=== PATIENT | female | born 1990 | race Caucasian/White ===

== ENCOUNTER 2024-04-26 20:07 | Inpatient (IN) ==
[2024-04-26 20:47] LABS: Basophils # (auto) 0.09 K/uL (0.00-0.20); Basophils % (auto) 0.6 %; Eosinophils # (auto) 0.14 K/uL (0.00-0.50); Eosinophils % (auto) 0.9 %; Hematocrit (blood only) 43.5 % (37.0-47.0); Hemoglobin 15.2 g/dl (12.0-16.0); Immature Granulocytes # (auto) 0.06 K/uL (0.01-0.20); Immature Granulocytes % (auto) 0.4 %; Lymphocytes # (auto) 3.34 K/uL (1.20-3.40); Lymphocytes % (auto) 22.1 %; Mean Corpuscular Hemoglobin 32.5 pg (25.0-34.0); Mean Corpuscular Hgb Conc 34.9 g/dL (32.0-36.0); Mean Corpuscular Volume 93.1 fL (80.0-100.0); Mean Platelet Volume 8.7 fL (9.4-12.4); Monocytes # (auto) 1.06 K/uL (0.11-0.59); Platelet Count 289 K/uL (130-400); RDW Coefficient of Variation 14.3 % (11.5-14.5); RDW Standard Deviation 48.9 fL (36.4-46.3); Red Blood Count 4.67 M/uL (4.20-5.40); White Blood Count 15.09 K/ul (4.8-10.8)
[2024-04-26 21:02] LABS: Appearance Urine Cloudy (Clear); Bacteria Urine Automated 1+ (None Seen); Bilirubin Urine Negative (Negative); Blood Urine 2+ (Negative); Color Urine Yellow; Glucose Urine UA Negative (Negative); Ketones Urine Trace (Negative); Leukocyte Esterase Urine Negative (Negative); Nitrite Urine Negative (Negative); Protein Urine 1+ (Negative); Specific Gravity Urine 1.021 (1.000-1.030); Urobilinogen Urine Negative (Negative); WBC Urine Automated 0-5 /hpf (0-5); pH Urine 5.5 (4.5-7.5)
[2024-04-26 21:12] LABS: Acetaminophen < 3 ug/ml (10-30); Amphetamines+Metham, Urine Neg (Neg); Barbiturates, Urine Neg (Neg); Benzodiazepine, Urine Neg (Neg); Cocaine, Urine Neg (Neg); Fentanyl, Urine Neg (Neg); MDMA (Ecstacy), Urine Neg (Neg); Marijuana, Urine Neg (Neg); Methadone, Urine Neg (Neg); Opiate, Urine Neg (Neg); Phencyclidine, Urine Neg (Neg); Salicylate < 3.0 mg/dl (3.0-30)
[2024-04-26 21:13] LABS: Alanine Aminotransferase 21 U/L (7-52); Albumin Globulin Ratio 1.3 (0.9-2); Albumin Level 4.4 gm/dl (3.4-5.0); Alkaline Phosphatase 85 U/L (34-104); Anion Gap 12 (3-11); BUN Creatinine Ratio 12.3 (10-20); Bilirubin,Total 0.2 mg/dl (0.2-1.0); Blood Urea Nitrogen 7 mg/dl (6-23); Calcium 9.9 mg/dl (8.6-10.3); Carbon Dioxide 20 mmol/L (21-32); Chloride 103 mmol/L (98-107); Creatinine Clr Calc Pharmacy 132.7 ml/min; Est GFR (African American) 138.2 ml/min; Est GFR (Non-African American) 119.3 ml/min; Globulin 3.3 gm/dl (2.5-4.0); Glucose 147 mg/dl (70-99(Fasting)); Sodium 135 mmol/L (136-145); Total Protein 7.7 gm/dl (6.0-8.3)
[2024-04-26 21:21] LABS: Potassium 4.1 mmol/L (3.5-5.1)
[2024-04-26 21:22] LABS: Thyroid Stimulating Hormone 1.069 uIu/ml (0.300-4.500)
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
[2024-04-26] MEDS: NICOTINE 21 MG/24 HR TDSY TD STA (21:56)
[2024-04-26] MEDS: LORazepam 1 MG TAB SL STA (21:57)
[2024-04-26] MEDS: chlordiazePOXIDE HCl 25 MG CAP PO ONE (21:57)
[2024-04-26] MEDS: dexAMETHasone**PF** 10 MG/ML VIAL PO ONE (23:41)
[2024-04-26] MEDS: AMOXICILLIN/CLAVULANATE 875 MG TAB PO ONE (23:41)
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
--- NOTE | 2024-04-27 00:05 | CT Scan Report ---
Exam(s): CT FACIAL Without Contrast EXAM: CT Head and Maxillofacial Without Intravenous Contrast CLINICAL HISTORY: Reason for exam: right jaw pain, dental infection. TECHNIQUE: Axial computed tomography images of the head/brain and face without intravenous contrast. Automated exposure control was utilized for the study. A dose lowering technique was utilized adhering to the principles of ALARA. COMPARISON: No relevant prior studies available. FINDINGS: Brain: Unremarkable. No hemorrhage. No significant white matter disease. No edema. Ventricles: Unremarkable. No ventriculomegaly. Bones/joints: No acute fracture. Excessive dental caries with periapical lucencies about tooth #7, 12,, 18 and 31 concerning for periapical abscesses. Soft tissues: There is inflammatory phlegmon about the right lateral mandible with mild inflammation of the surrounding soft tissues. Sinuses: Unremarkable as visualized. No acute sinusitis. Mastoid air cells: Unremarkable as visualized. No mastoid effusion. Orbits: Unremarkable as visualized. IMPRESSION: Extensive dental caries with periapical about tooth #7, 12, 18 and 31 concerning for periapical abscesses with inflammatory phlegmon about the right lateral mandible without definite evidence of abscess formation in this noncontrast study. Recommend dental consult for further evaluation. Electronically signed by: Rashida Hare MD 04/27/24 00:05 AM
[2024-04-27 00:31] LABS: Magnesium 1.8 mg/dl (1.7-2.4)
[2024-04-27] MEDS: AMPICILLIN/SULBACTAM SOD 3,000 MG in SODIUM CHLOR 0.9% MINI-B 100 ML IV STA (00:40)
[2024-04-27] MEDS: MULTI-VITAMIN INFUSION 10 ML, THIAMINE HCL 100 MG, FOLIC ACID 1 MG in SODIUM CHLORIDE 0... IV ONE (01:12)
[2024-04-27] MEDS: KETOROLAC TROMETHAMINE 15 MG/ML VIAL IV PRN (02:20)
[2024-04-27] MEDS: LORazepam 1 MG in SYRINGE 0.5 ML IV PRN (02:23)
[2024-04-27] MEDS: ACETAMINOPHEN 325 MG TAB PO PRN (05:13)
[2024-04-27] MEDS: PROMETHAZINE HCL 6.25 MG in SODIUM CHLORIDE 0.9% 50 ML IV PRN (05:14)
[2024-04-27] MEDS: AMPICILLIN/SULBACTAM SOD 3,000 MG in SODIUM CHLOR 0.9% MINI-B 100 ML IV SCH (06:14)
[2024-04-27 06:57] LABS: Estimated Average Glucose 103 mg/dl; Hemoglobin A1C 5.2 % (4.5-5.6)
[2024-04-27 07:23] LABS: Basophils # (auto) 0.04 K/uL (0.00-0.20); Basophils % (auto) 0.4 %; Eosinophils # (auto) 0.02 K/uL (0.00-0.50); Eosinophils % (auto) 0.2 %; Hematocrit (blood only) 42.4 % (37.0-47.0); Hemoglobin 14.4 g/dl (12.0-16.0); Immature Granulocytes # (auto) 0.04 K/uL (0.01-0.20); Immature Granulocytes % (auto) 0.4 %; Lymphocytes # (auto) 0.93 K/uL (1.20-3.40); Lymphocytes % (auto) 8.4 %; Mean Corpuscular Hemoglobin 31.7 pg (25.0-34.0); Mean Corpuscular Volume 93.4 fL (80.0-100.0); Mean Platelet Volume 9.2 fL (9.4-12.4); Monocytes # (auto) 0.08 K/uL (0.11-0.59); Monocytes % (auto) 0.7 %; Neutrophils # (auto) 9.99 K/uL (1.40-6.50); Neutrophils % (auto) 89.9 %; Platelet Count 276 K/uL (130-400); RDW Coefficient of Variation 14.1 % (11.5-14.5); RDW Standard Deviation 47.8 fL (36.4-46.3); Red Blood Count 4.54 M/uL (4.20-5.40)
[2024-04-27 07:37] LABS: Calcium 8.8 mg/dl (8.6-10.3); Creatinine Clr Calc Pharmacy 140.1 ml/min; Est GFR (African American) 140.7 ml/min; Est GFR (Non-African American) 121.4 ml/min; Potassium 4.2 mmol/L (3.5-5.1)
[2024-04-27] MEDS: LORazepam 0.5 MG TAB PO PRN (08:27)
[2024-04-27] MEDS ORDERED: Nursing to Pharmacy Communication SCH (09:30)
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
--- NOTE | 2024-04-27 16:31 | Hospitalist Progress Note ---
Date of Service April 27, 2024 Assessment & Plan (1) Sepsis: Plan: Secondary to odontogenic infection Suicidality, history mood disorder Possible alcohol abuse Hyperglycemia low DM ongoing tobacco abuse Admit to medical telemetry [facility] OMFS consult Re: Odontogenic infection Suicide precautions, Psych consult re: suicidality KIM S at risk protocol, DT precautions Check hemoglobin A1c Nicotine patch DVT prophylaxis. SCDs for now possible procedure Recommend Lovenox 40 mg subcutaneous daily if no OMFS procedure Full code Text document was generated using [employer] voice recognition software. It may contain grammatical or spelling errors. Kindly contact undersigned for clarification of any documentation item in question. Admission and Anticipated Discharge Date Admission Date: April 26, 2024 Subjective 04/27/2024 The patient was seen and examined in medical telemetry unit She has been feeling little better Tremors are improved Right facial pain and dental pain is persisting No fever and or chills Review of Systems Review of Systems: All systems reviewed and are unremarkable except as noted below Physical Exam Physical Exam: Sitting on the bed without any acute distress Constitutional: well developed, well nourished, + ill appearing and average body habitus Eyes: PERRL, conjunctivae normal, anicteric sclerae ENMT: external ear and nose normal, oropharynx normal Neck: trachea midline, no thyromegaly Respiratory: no respiratory distress Auscultation: lungs clear to auscultation bilaterally Cardiovascular: Rate/Rhythm: regular rate, regular rhythm and + tachycardic Heart Sounds: normal S1 and normal S2; no murmur Extremities: no edema Gastrointestinal (Abdomen): Inspection/Auscultation: normal bowel sounds; abdomen not distended Percussion/Palpation: abdomen soft; abdomen nontender Musculoskeletal: No acute arthritis involving any of the joint Neurologic: normal touch/pain/proprioception and moves all extremities; no focal motor deficits Lymphatic: no cervical or axillary lymphadenopathy Results & Data Results & Data Vital Signs (Past 12 Hours) Vital Signs Temp Pulse Pulse Resp BP BP Pulse Ox 04/27/24 15:07 36.8 C 102 H 20 151/95 H 96 04/27/24 14:07 103 H 04/27/24 11:34 36.6 C 118 H 20 98 04/27/24 08:45 04/27/24 08:08 36.7 C 90 18 114/75 97 04/27/24 07:00 95 H 04/27/24 06:19 36.3 C L 94 H 22 118/75 97 04/27/24 05:53 36.8 C 105 H 22 130/90 97 O2 Del Method 04/27/24 15:07 Room Air 04/27/24 14:07 04/27/24 11:34 Room Air 04/27/24 08:45 Room Air 04/27/24 08:08 Room Air 04/27/24 07:00 04/27/24 06:19 Room Air 04/27/24 05:53 Room Air Laboratory Results Short CBC 04/26/24 04/27/24 Range/Units 20:24 06:32 WBC 15.09 H 11.10 H (4.8-10.8) K/ul Hgb 15.2 14.4 (12.0-16.0) g/dl Hct 43.5 42.4 (37.0-47.0) % Plt Count 289 276 (130-400) K/uL BMP 04/26/24 04/26/24 04/27/24 20:24 20:24 06:32 Sodium 135 L 136 Potassium TNP 4.1 4.2 Chloride 103 107 Carbon Dioxide 20 L 22 BUN 7 7 Creatinine 0.57 L 0.54 L Glucose 147 H 144 H Calcium 9.9 8.8 Liver Function 04/26/24 04/26/24 Range/Units 20:24 20:24 Total Bilirubin 0.2 (0.2-1.0) mg/dl AST TNP 25 ALT 21 (7-52) U/L Alkaline Phosphatase 85 (34-104) U/L Albumin 4.4 (3.4-5.0) gm/dl Urine 04/26/24 Range/Units 20:24 Urine Color Yellow Urine Appearance Cloudy A (Clear) Urine pH 5.5 (4.5-7.5) Ur Specific [place] 1.021 (1.000-1.030) Urine Protein 1+ H (Negative) Urine Glucose (UA) Negative (Negative) Medications Administered Current Inpatient Medications Acetaminophen (Acetaminophen 325 Mg Tab) 650 mg PO QID PRN PRN Reason: pain/fever Stop: 05/27/24 00:11 Last Admin: 04/27/24 05:13 Dose: 650 mg Folic Acid (Folic Acid 1 Mg Tab) 1 mg PO QAM [facility] Stop: 05/28/24 08:59 Ampicillin Sodium/Sulbactam Sodium 3,000 mg/ Sodium Chloride 100 mls @ 100 mls/hr IV Q6H [facility] Stop: 05/07/24 05:59 Last Infusion: 04/27/24 13:11 Dose: Infused Promethazine HCl 6.25 mg/ (Sodium Chloride) 50.25 mls @ 201 mls/hr IV Q6H PRN PRN Reason: Nausea And Vomiting Stop: 05/27/24 00:11 Last Infusion: 04/27/24 05:41 Dose: Infused Ibuprofen (Ibuprofen 200 Mg Tab) 200 mg PO Q6H PRN PRN Reason: pain not relieved by tylenol Stop: 05/27/24 00:11 Ketorolac Tromethamine (Ketorolac Tromethamine 15 Mg/Ml Vial) 15 mg IV Q6H PRN PRN Reason: Pain Stop: 05/02/24 00:11 Last Admin: 04/27/24 16:27 Dose: 15 mg Lorazepam (Lorazepam 0.5 Mg Tab) 0.5 mg PO TID PRN PRN Reason: Anxiety Stop: 05/27/24 06:20 Last Admin: 04/27/24 08:27 Dose: 0.5 mg Miscellaneous (Remove Nicoderm Patch) 1 each N/A 2100 [facility] Stop: 04/27/24 21:01 Multivitamins ([facility]ivitamin Tab) [facility] Stop: 05/28/24 08:59 Thiamine HCl (Thiamine Hcl 100 Mg Tab) [facility] Stop: 05/28/24 08:59
[2024-04-27] MEDS: IBUPROFEN 200 MG TAB PO PRN (19:31)
[2024-04-27] MEDS: NICOTINE 21 MG/24 HR TDSY TD SCH (21:55)
[2024-04-28] MEDS: ONDANSETRON INJ 2 MG/ML 2 ML VIAL IV STA (04:02)
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
[2024-04-28] MEDS: FOLIC ACID 1 MG TAB PO SCH (10:15)
[2024-04-28] MEDS: THIAMINE HCL 100 MG TAB PO SCH (10:15)
[2024-04-28] MEDS: MULTIVITAMIN TAB PO SCH (10:15)
[2024-04-28] MEDS: PROMETHAZINE HCL 12.5 MG in SODIUM CHLORIDE 0.9% 50 ML IV PRN (10:16)
--- NOTE | 2024-04-28 10:24 | Ultrasound Report ---
BILATERAL LOWER EXTREMITY VENOUS DOPPLER HISTORY: Calf pain COMPARISON STUDY: None. FINDINGS: There is normal compressibility, flow, and augmentation within the bilateral lower extremit y deep venous systems. No sonographic abnormality within the right or left calf at the patient's area of interest. IMPRESSION: No DVT within the right or left lower extremity. ACT 112: Negative or not required by law. Electronically signed by: Kyle Sanchez M.D. 04/28/2024 10:23 AM
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
[2024-04-28] MEDS: MoRPHine SULFATE 4 MG/ML 1 ML CARP\\VIAL IV STA ×2 (13:10→20:05)
--- NOTE | 2024-04-28 14:37 | Hospitalist Progress Note ---
Date of Service April 28, 2024 Assessment & Plan (1) Sepsis: Plan: Secondary to odontogenic infection CT evidence of extensive dental caries with periapical about tooth number 04/09/2018 and 31 infection concerning of periapical abscess Has been getting intravenous Unasyn She has been feeling reasonably better as of today there is 04/28/2024 Pain is been controlled with intravenous Toradol and occasional morphine Appreciate orofacial maxillary surgery input and recommendation Will have dental surgery tomorrow Suicidality, history mood disorder Appreciate psychiatric input and recommendation No more suicidal ideation and the patient is taken off one-to-one isolation Denies any more psychotic and/or depressive behavior Possible alcohol abuse KIM S at risk protocol, DT precautions No signs and or symptoms of withdrawal Hyperglycemia low DM ongoing tobacco abuse Nicotine patch Check hemoglobin A1c-5.2 DVT prophylaxis. SCDs for now possible procedure Recommend Lovenox 40 mg subcutaneous daily if no OMFS procedure Full code Admission and Anticipated Discharge Date Admission Date: April 26, 2024 Subjective 04/27/2024 The patient was seen and examined in medical telemetry unit She has been feeling little better Tremors are improved Right facial pain and dental pain is persisting No fever and or chills 04/28/2024 The patient was seen and examined in medical telemetry unit She has been complaining of more pain in the mouth today Denies any fever and or chills Will have dental surgery tomorrow Review of Systems Review of Systems: All systems reviewed and are unremarkable except as noted below Physical Exam Physical Exam: Sitting on the bed without any acute distress Constitutional: well developed, well nourished, + ill appearing and average body habitus Eyes: PERRL, conjunctivae normal, anicteric sclerae ENMT: external ear and nose normal, oropharynx normal Neck: trachea midline, no thyromegaly Respiratory: no respiratory distress Auscultation: lungs clear to auscultation bilaterally Cardiovascular: Rate/Rhythm: regular rate, regular rhythm and + tachycardic Heart Sounds: normal S1 and normal S2; no murmur Extremities: no edema Gastrointestinal (Abdomen): Inspection/Auscultation: normal bowel sounds; abdomen not distended Percussion/Palpation: abdomen soft; abdomen nontender Neurologic: normal touch/pain/proprioception and moves all extremities; no focal motor deficits Lymphatic: no cervical or axillary lymphadenopathy Results & Data Results & Data Vital Signs (Past 12 Hours) Vital Signs Temp Pulse Pulse Resp BP BP Pulse Ox 04/28/24 14:10 86 04/28/24 11:20 36.8 C 73 19 144/98 H 100 04/28/24 07:31 36.7 C 72 18 122/78 100 04/28/24 07:31 93 H 04/28/24 04:01 36.5 C 81 16 130/79 99 O2 Del Method 04/28/24 14:10 04/28/24 11:20 Room Air 04/28/24 07:31 Room Air 04/28/24 07:31 04/28/24 04:01 Room Air Laboratory Results Home Medications Medication Instructions Recorded Confirmed No Known Home Medications 04/27/24 04/27/24 Medications Administered Current Inpatient Medications Acetaminophen (Acetaminophen 325 Mg Tab) 650 mg PO QID PRN PRN Reason: pain/fever Stop: 05/27/24 00:11 Last Admin: 04/28/24 10:24 Dose: 650 mg Folic Acid (Folic Acid 1 Mg Tab) 1 mg PO QA BRE Stop: 05/28/24 08:59 Last Admin: 04/28/24 10:15 Dose: 1 mg Ampicillin Sodium/Sulbactam Sodium 3,000 mg/ Sodium Chloride 100 mls @ 100 mls/hr IV Q6H BRE Stop: 05/07/24 05:59 Last Infusion: 04/28/24 14:16 Dose: Infused Promethazine HCl 12.5 mg/ (Sodium Chloride) 50.5 mls @ 201 mls/hr IV Q6H PRN PRN Reason: Nausea And Vomiting Stop: 05/27/24 00:11 Last Infusion: 04/28/24 10:38 Dose: Infused Ibuprofen (Ibuprofen 200 Mg Tab) 200 mg PO Q6H PRN PRN Reason: pain not relieved by tylenol Stop: 05/27/24 00:11 Last Admin: 04/28/24 10:15 Dose: 200 mg Ketorolac Tromethamine (Ketorolac Tromethamine 15 Mg/Ml Vial) 15 mg IV Q6H PRN PRN Reason: Pain Stop: 05/02/24 00:11 Last Admin: 04/28/24 11:39 Dose: 15 mg Lorazepam (Lorazepam 0.5 Mg Tab) 0.5 mg PO TID PRN PRN Reason: Anxiety Stop: 05/27/24 06:20 Last Admin: 04/28/24 10:24 Dose: 0.5 mg Miscellaneous (Remove Nicoderm Patch) 1 each N/A DAILY@2058 [facility] Stop: 05/28/24 20:58 Multivitamins (Multivitamin Tab) 1 tab PO QAM [facility] Stop: 05/28/24 08:59 Last Admin: 04/28/24 10:15 Dose: 1 tab Nicotine (Nicotine 21 Mg/24 Hr Tdsy) 1 patch TD HS [facility] Stop: 05/27/24 20:59 Last Admin: 04/27/24 21:55 Dose: 1 patch Thiamine HCl (Thiamine Hcl 100 Mg Tab) 100 mg PO QAM [facility] Stop: 05/28/24 08:59 Last Admin: 04/28/24 10:15 Dose: 100 mg
[2024-04-29 07:16] LABS: Basophils # (auto) 0.07 K/uL (0.00-0.20); Basophils % (auto) 0.7 %; Eosinophils # (auto) 0.17 K/uL (0.00-0.50); Eosinophils % (auto) 1.7 %; Hemoglobin 13.6 g/dl (12.0-16.0); Immature Granulocytes # (auto) 0.11 K/uL (0.01-0.20); Immature Granulocytes % (auto) 1.1 %; Lymphocytes # (auto) 3.99 K/uL (1.20-3.40); Lymphocytes % (auto) 39.3 %; Mean Corpuscular Hemoglobin 32.5 pg (25.0-34.0); Mean Corpuscular Volume 95.5 fL (80.0-100.0); Mean Platelet Volume 9.3 fL (9.4-12.4); Monocytes # (auto) 0.88 K/uL (0.11-0.59); Monocytes % (auto) 8.7 %; Neutrophils # (auto) 4.92 K/uL (1.40-6.50); Neutrophils % (auto) 48.5 %; Platelet Count 268 K/uL (130-400); RDW Coefficient of Variation 14.3 % (11.5-14.5); RDW Standard Deviation 50.2 fL (36.4-46.3); Red Blood Count 4.19 M/uL (4.20-5.40); White Blood Count 10.14 K/ul (4.8-10.8)
[2024-04-29 07:40] LABS: BUN Creatinine Ratio 14.8 (10-20); Creatinine Clr Calc Pharmacy 140.1 ml/min; Est GFR (African American) 140.7 ml/min; Est GFR (Non-African American) 121.4 ml/min; Potassium 3.5 mmol/L (3.5-5.1)
--- NOTE | 2024-04-29 16:30 | Hospitalist Progress Note ---
Date of Service April 29, 2024 Assessment & Plan (1) Sepsis: Plan: Secondary to odontogenic infection CT evidence of extensive dental caries with periapical about tooth number 04/09/2018 and 31 infection concerning of periapical abscess Has been getting intravenous Unasyn She has been feeling reasonably better as of today there is 04/28/2024 Pain is been controlled with intravenous Toradol and occasional morphine Appreciate orofacial maxillary surgery input and recommendation Increasing pain in the right side of the face today Will adjust the pain medication Will have specific procedure like aspiration and may be tooth extraction tomorrow Will continue current management Suicidality, history mood disorder Appreciate psychiatric input and recommendation No more suicidal ideation and the patient is taken off one-to-one isolation Denies any more psychotic and/or depressive behavior No more psychiatric issue Possible alcohol abuse KIM S at risk protocol, DT precautions No signs and or symptoms of withdrawal Hyperglycemia low DM ongoing tobacco abuse Nicotine patch Check hemoglobin A1c-5.2 DVT prophylaxis. SCDs for now possible procedure Recommend Lovenox 40 mg subcutaneous daily if no OMFS procedure Full code Admission and Anticipated Discharge Date Admission Date: April 26, 2024 Subjective 04/27/2024 The patient was seen and examined in medical telemetry unit She has been feeling little better Tremors are improved Right facial pain and dental pain is persisting No fever and or chills 04/28/2024 The patient was seen and examined in medical telemetry unit She has been complaining of more pain in the mouth today Denies any fever and or chills Will have dental surgery tomorrow 04/29/2024 The patient was seen and examined in medical telemetry unit She has been complaining of more pain in the right side of the face today Has been able to eat or drink anything Denies any fever and or chills Her pain medications will be increased Review of Systems Review of Systems: All systems reviewed and are unremarkable except as noted below Physical Exam Physical Exam: Sitting on the bed without any acute distress Constitutional: well developed, well nourished, + ill appearing and average body habitus Eyes: PERRL, conjunctivae normal, anicteric sclerae ENMT: external ear and nose normal, oropharynx normal Neck: trachea midline, no thyromegaly Respiratory: no respiratory distress Auscultation: lungs clear to auscultation bilaterally Cardiovascular: Rate/Rhythm: regular rate, regular rhythm and + tachycardic Heart Sounds: normal S1 and normal S2; no murmur Extremities: no edema Gastrointestinal (Abdomen): Inspection/Auscultation: normal bowel sounds; abdomen not distended Percussion/Palpation: abdomen soft; abdomen nontender Neurologic: normal touch/pain/proprioception and moves all extremities; no focal motor deficits Lymphatic: no cervical or axillary lymphadenopathy Results & Data Results & Data Vital Signs (Past 12 Hours) Vital Signs Temp Pulse Pulse Resp BP Pulse Ox O2 Del Method 04/29/24 15:20 36.9 C 77 15 114/74 98 Room Air 04/29/24 15:11 86 04/29/24 11:19 36.7 C 78 15 116/77 98 Room Air 04/29/24 08:24 73 04/29/24 07:44 36.7 C 70 14 116/79 99 Room Air Laboratory Results Short CBC 04/29/24 Range/Units 06:36 WBC 10.14 (4.8-10.8) K/ul Hgb 13.6 (12.0-16.0) g/dl Hct 40.0 (37.0-47.0) % Plt Count 268 (130-400) K/uL BMP 04/29/24 06:36 Sodium 139 Potassium 3.5 Chloride 106 Carbon Dioxide 26 BUN 8 Creatinine 0.54 L Glucose 80 Calcium 9.0 Medications Administered Current Inpatient Medications Acetaminophen (Acetaminophen 325 Mg Tab) 650 mg PO QID PRN PRN Reason: pain/fever Stop: 05/27/24 00:11 Last Admin: 04/29/24 13:50 Dose: 650 mg Folic Acid (Folic Acid 1 Mg Tab) [facility] [place] Stop: 05/28/24 08:59 Last Admin: 04/29/24 08:03 Dose: 1 mg Ampicillin Sodium/Sulbactam Sodium 3,000 mg/ Sodium Chloride 100 mls @ 100 mls/ hr IV Q6H [facility] Stop: 05/07/24 05:59 Last Infusion: 04/29/24 12:29 Dose: Infused Promethazine HCl 12.5 mg/ (Sodium Chloride) 50.5 mls @ 201 mls/hr IV Q6H PRN PRN Reason: Nausea And Vomiting Stop: 05/27/24 00:11 Last Infusion: 04/29/24 11:28 Dose: Infused Ibuprofen (Ibuprofen 200 Mg Tab) 200 mg PO Q6H PRN PRN Reason: pain not relieved by tylenol Stop: 05/27/24 00:11 Last Admin: 04/28/24 23:58 Dose: 200 mg Ketorolac Tromethamine (Ketorolac Tromethamine 15 Mg/Ml Vial) 15 mg IV Q6H PRN PRN Reason: Pain Stop: 05/02/24 00:11 Last Admin: 04/29/24 14:32 Dose: 15 mg Lorazepam (Lorazepam 0.5 Mg Tab) 0.5 mg PO TID PRN PRN Reason: Anxiety Stop: 05/27/24 06:20 Last Admin: 04/29/24 04:18 Dose: 0.5 mg Miscellaneous (Remove Nicoderm Patch) 1 each N/A DAILY@2058 [facility] Stop: 05/28/24 20:58 Last Admin: 04/28/24 20:07 Dose: 1 each Multivitamins (Multivitamin Tab) 1 tab PO QAM [facility] Stop: 05/28/24 08:59 Last Admin: 04/29/24 08:03 Dose: 1 tab Nicotine (Nicotine 21 Mg/24 Hr Tdsy) 1 patch TD HS [facility] Stop: 05/27/24 20:59 Last Admin: 04/28/24 20:07 Dose: 1 patch Thiamine HCl (Thiamine Hcl 100 Mg Tab) 100 mg PO QAM [facility] Stop: 05/28/24 08:59 Last Admin: 04/29/24 08:03 Dose: 100 mg
--- NOTE | 2024-04-30 10:35 | Anesthesiology Consultation ---
Date of Service April 30, 2024 Assessment & Plan Chart Review Chart Review: Acceptable Risk for Surgery and Patient NOT seen in Pre Admission Testing History Surgery Operation Date: 04/30/24 14:20 Proposed Procedures p Teeth Extraction x 7 - Vahid Bagley DMD s Right Lower Facial Incision and Drainage - Vahid Bagley DMD Height/Weight Height: 5 ft 7 in Weight: 68 kg Allergies Allergy/AdvReac Type Severity Reaction Status Date / Time ciprofloxacin [From Cipro] Allergy Intermediate Hives Verified 04/27/24 00:00 Sulfa (Sulfonamide Allergy Intermediate HIVES Verified 04/27/24 00:00 Antibiotics) Quinolones Allergy Mild Unknown Verified 04/27/24 00:00 chlorpheniramine AdvReac Intermediate "HEART Verified 04/27/24 00:00 RACES" ondansetron AdvReac Intermediate MIGRAINES Verified 04/27/24 00:00 phenylephrine AdvReac Intermediate "HEART Verified 04/27/24 00:00 RACES" phenylpropanolamine AdvReac Intermediate "HEART Verified 04/27/24 00:00 RACES" phenyltoloxamine AdvReac Intermediate "HEART Verified 04/27/24 00:00 RACES" propoxyphene AdvReac Mild LIGHTHEADED Verified 04/27/24 00:00 [From Thelma] SYMPATHOMIMADR AdvReac Unknown HX HEART Uncoded 04/27/24 00:00 PROBLEMS Medications Home Medications Medication Instructions Recorded Confirmed Last Taken No Known Home Medications 04/27/24 04/27/24 Unknown Active Medications Generic Name Dose Route Start Last Admin Trade Name Freq PRN Reason Stop Dose Admin Acetaminophen 650 mg 04/27/24 00:12 04/30/24 08:07 Acetaminophen 325 Mg Tab PO 05/27/24 00:11 650 mg QID PRN Administration pain/fever Folic Acid 1 mg 04/28/24 09:00 04/30/24 08:07 Folic Acid 1 Mg Tab PO 05/28/24 08:59 1 mg QAM BRE Administration Ampicillin Sodium/Sulbactam 100 mls @ 100 mls/hr 04/27/24 06:00 04/30/24 07:24 Sodium 3,000 mg/ Sodium IV 05/07/24 05:59 Infused Chloride Q6H BRE Infusion Promethazine HCl 12.5 mg/ 50.5 mls @ 201 mls/hr 04/28/24 03:52 04/30/24 09:37 Sodium Chloride IV 05/27/24 00:11 Infused Q6H PRN Infusion Nausea And Vomiting Ibuprofen 200 mg 04/27/24 00:12 04/30/24 00:41 Ibuprofen 200 Mg Tab PO 05/27/24 00:11 200 mg Q6H PRN Administration pain not relieved by tylenol Ketorolac Tromethamine 15 mg 04/27/24 00:12 04/30/24 09:17 Ketorolac Tromethamine 15 Mg/Ml Vial IV 05/02/24 00:11 15 mg Q6H PRN Administration Pain Lorazepam 0.5 mg 04/27/24 06:21 04/30/24 00:42 Lorazepam 0.5 Mg Tab PO 05/27/24 06:20 0.5 mg TID PRN Administration Anxiety Miscellaneous 1 each 04/28/24 20:59 04/29/24 20:05 Remove Nicoderm Patch N/A 05/28/24 20:58 1 each DAILY@2058 BRE Administration Multivitamins 1 tab 04/28/24 09:00 04/30/24 08:07 Multivitamin Tab PO 05/28/24 08:59 1 tab QAM BRE Administration Nicotine 1 patch 04/27/24 21:00 04/29/24 20:05 Nicotine 21 Mg/24 Hr Tdsy TD 05/27/24 20:59 1 patch HS BRE Administration Thiamine HCl 100 mg 04/28/24 09:00 04/30/24 08:07 Thiamine Hcl 100 Mg Tab PO 05/28/24 08:59 100 mg QAM BRE Administration Social History Smoking Status: Current every day smoker Hx Alcohol Use: Yes Alcohol type: beer alcohol intake frequency: a few times a week Hx Substance Use: Yes substance use type: marijuana Physical Exam Vital Signs Last Vital Signs Temp 36.7 C 04/30/24 08:12 Pulse 66 04/30/24 08:12 Resp 18 04/30/24 08:12 BP 148/91 H 04/30/24 08:12 Pulse Ox 100 04/30/24 08:12 O2 Del Method Room Air 04/30/24 08:12 Testing Laboratory Results 04/29/24 06:36 04/29/24 06:36 Hemoglobin A1c 5.2 % (4.5-5.6) 04/26/24 20:24 Urine Color Yellow 04/26/24 20:24 Urine Appearance Cloudy (Clear) A 04/26/24 20:24 Urine pH 5.5 (4.5-7.5) 04/26/24 20:24 Ur Specific [place] 1.021 (1.000-1.030) 04/26/24 20:24 Urine Protein 1+ (Negative) H 04/26/24 20:24 Urine Glucose (UA) Negative (Negative) 04/26/24 20:24 Urine Ketones Trace (Negative) H 04/26/24 20:24 Urine Nitrite Negative (Negative) 04/26/24 20:24 Ur Leukocyte Esterase Negative (Negative) 04/26/24 20:24 Urine WBC (Auto) 0-5 /hpf (0-5) 04/26/24 20:24 Urine RBC (Auto) 11-20 /hpf (0-2) H 04/26/24 20:24 U Hyaline Cast (Auto) 6-10 /lpf (0-2) H 04/26/24 20:24 U Epithel Cells (Auto) 6-10 /hpf (0-2) H 04/26/24 20:24 Urine Bacteria (Auto) 1+ (None Seen) H 04/26/24 20:24 04/27/24 00:15 Aerobic Blood Culture - Preliminary Blood No growth in Aerobic bottle after 48 hours. Anaerobic Blood Culture - Preliminary No growth in Anaerobic bottle after 48 hours. 04/27/24 00:30 Aerobic Blood Culture - Preliminary Blood No growth in Aerobic bottle after 48 hours. Anaerobic Blood Culture - Preliminary No growth in Anaerobic bottle after 48 hours. 04/26/24 20:24 Urine Culture - Final Urine,Clean Catch More than three types of organisms present, all moderate counts mixed probable skin mónica. No further identifications or sensitivities to follow. 04/26/24 20:29 POC Ur Test NEG
[2024-04-30] MEDS ORDERED: ATROPINE SULFATE 0.1 MG/ML 10ML SYR IV PRN (15:13)
[2024-04-30] MEDS ORDERED: HYDROmorphone INJ 1 MG/ML SYRINGE IV PRN (15:13)
[2024-04-30] MEDS ORDERED: ONDANSETRON INJ 2 MG/ML 2 ML VIAL IV PRN (15:13)
[2024-04-30] MEDS ORDERED: ePHEDrine sulfate 50 MG/ML AMP IV PRN (15:13)
[2024-04-30] MEDS ORDERED: fentaNYL citrate PF 100 MCG/2 ML VIAL ONE ×2 (15:32→16:10)
[2024-04-30] MEDS ORDERED: DEXAMETHASONE SOD INJ 4 MG/ML VIAL ONE (15:32)
[2024-04-30] MEDS ORDERED: MIDAZOLAM HCL 1 MG/ML 2ML VIAL ONE (15:32)
[2024-04-30] MEDS ORDERED: ONDANSETRON INJ 2 MG/ML 2 ML VIAL ONE (15:32)
[2024-04-30] MEDS ORDERED: PROPOFOL IV EMULSION 10 MG/ML 20 ML VIAL IV ONE (15:32)
[2024-04-30] MEDS ORDERED: ROCURONIUM BROMIDE 10 MG/ML 5 ML VIAL IV ONE (15:32)
--- NOTE | 2024-04-30 15:46 | History & Physical Bridge Note ---
Date of Service April 30, 2024 History & Physical Bridge Note I have examined the patient, reviewed the History & Physical and in the interval since the performance of the History & Physical I have noted the following changes of clinical significance: no changes noted. OK for planned surgery
[2024-04-30] MEDS: CHLORHEXIDINE GLUCONATE 0.12% 480 ML MT ONE (16:16)
[2024-04-30] MEDS: BUPIVACAINE/EPINEPHRINE 0.5% 1:200,000 1.8 ML CARP ONE (16:16)
[2024-04-30] MEDS ORDERED: SUGAMMADEX SODIUM 200 MG/2 ML VIAL IV ONE (16:45)
--- NOTE | 2024-04-30 17:02 | Post Operative Brief Note ---
PG Immediate Post Op with CF Date of Surgery April 30, 2024 Pre & Post Diagnosis Operation Date: 04/30/24 14:20 Pre-Op Diagnosis: Infected dental caries Post-Op Diagnosis: Infected dental caries I identified the patient and participated in the time-out.: Yes Procedure Operation Date: 04/30/24 14:20 Actual Procedures p Teeth Extraction of 7, 12, 18, 19, 25, 29, 31(Not Applicable) - Vahid Bagley DMD s Right Lower Facial Incision and Drainage(Not Applicable) - Vahid Bagley DMD Surgeon Vahid Bagley DMD Communication Equipment Repairer none Estimated Blood Loss 5 Findings Consistent with Post-Op Diagnosis infected teeth causing acute facial swelling right and left sides of the jaw Specimens Specimen Description: none Complications none Disposition Accompanied Patient To Recovery: Yes
--- NOTE | 2024-04-30 17:03 | History & Physical Bridge Note ---
Date of Service April 30, 2024 History & Physical Bridge Note I have examined the patient, reviewed the History & Physical and in the interval since the performance of the History & Physical I have noted the following changes of clinical significance: no changes noted
[2024-04-30] MEDS: fentaNYL citrate PF 100 MCG/2 ML VIAL IV PRN (17:16)
--- NOTE | 2024-04-30 17:49 | Hospitalist Progress Note ---
Date of Service April 30, 2024 Assessment & Plan (1) Sepsis: Plan: Secondary to odontogenic infection CT evidence of extensive dental caries with periapical about tooth number 04/09/2018 and 31 infection concerning of periapical abscess Has been getting intravenous Unasyn She has been feeling reasonably better as of today there is 04/28/2024 Pain is been controlled with intravenous Toradol and occasional morphine Appreciate orofacial maxillary surgery input and recommendation Increasing pain in the right side of the face today Will adjust the pain medication Will have specific procedure like aspiration and may be tooth extraction tomorrow Will continue current management Status post extraction of 7, 12, 18, 19, 25, 29 and 31 and right lower fascial excision and grayness Remains seen neck collar and also requiring intravenous pain medications Drowsy from pain medications but does not have any acute distress Remains hemodynamically stable with blood pressure on the upper side Will continue current intravenous antibiotic Suicidality, history mood disorder Appreciate psychiatric input and recommendation No more suicidal ideation and the patient is taken off one-to-one isolation Denies any more psychotic and/or depressive behavior No more psychiatric issue Possible alcohol abuse KIM S at risk protocol, DT precautions No signs and or symptoms of withdrawal Hyperglycemia low DM ongoing tobacco abuse Nicotine patch Check hemoglobin A1c-5.2 DVT prophylaxis. SCDs for now possible procedure Recommend Lovenox 40 mg subcutaneous daily if no OMFS procedure Full code Admission and Anticipated Discharge Date Admission Date: April 26, 2024 Subjective 04/27/2024 The patient was seen and examined in medical telemetry unit She has been feeling little better Tremors are improved Right facial pain and dental pain is persisting No fever and or chills 04/28/2024 The patient was seen and examined in medical telemetry unit She has been complaining of more pain in the mouth today Denies any fever and or chills Will have dental surgery tomorrow 04/29/2024 The patient was seen and examined in medical telemetry unit She has been complaining of more pain in the right side of the face today Has been able to eat or drink anything Denies any fever and or chills Her pain medications will be increased 04/30/2024 The patient was seen and examined in PACU She is status post multiple teeth extraction and right lower facial incision and drainage Remains sedated on pain medications Review of Systems Review of Systems: Unobtainable due to cognitive status Physical Exam Physical Exam: Lying in bed without any acute distress Constitutional: well developed, well nourished, + ill appearing and average body habitus Eyes: PERRL, conjunctivae normal, anicteric sclerae ENMT: external ear and nose normal, oropharynx normal Neck: trachea midline, no thyromegaly Respiratory: no respiratory distress Auscultation: lungs clear to auscultation bilaterally Cardiovascular: Rate/Rhythm: regular rate, regular rhythm and + tachycardic Heart Sounds: normal S1 and normal S2; no murmur Extremities: no edema Gastrointestinal (Abdomen): Inspection/Auscultation: normal bowel sounds; abdomen not distended Percussion/Palpation: abdomen soft; abdomen nontender Neurologic: normal touch/pain/proprioception and moves all extremities; no focal motor deficits Lymphatic: no cervical or axillary lymphadenopathy Results & Data Results & Data Vital Signs (Past 12 Hours) Vital Signs Temp Pulse Pulse Pulse Resp BP Pulse Ox 04/30/24 17:30 78 21 148/98 H 100 04/30/24 17:20 72 20 141/92 H 100 04/30/24 17:10 74 17 144/98 H 100 04/30/24 17:00 36 C L 88 21 139/79 100 04/30/24 14:57 37.1 C 80 24 137/96 100 04/30/24 14:17 76 04/30/24 12:10 36.8 C 72 18 133/85 99 04/30/24 08:12 36.7 C 66 18 148/91 H 100 04/30/24 08:12 75 O2 Del Method 04/30/24 17:30 Room Air 04/30/24 17:20 Room Air 04/30/24 17:10 Room Air 04/30/24 17:00 Room Air 04/30/24 14:57 Room Air 04/30/24 14:17 04/30/24 12:10 Room Air 04/30/24 08:12 Room Air 04/30/24 08:12 Medications Administered Current Inpatient Medications Acetaminophen (Acetaminophen 325 Mg Tab) 650 mg PO QID PRN PRN Reason: pain/fever Stop: 05/27/24 00:11 Last Admin: 04/30/24 13:30 Dose: 650 mg Atropine Sulfate (Atropine Sulfate 0.1 Mg/Ml 10ml Syr) 0.5 mg IV Q1M PRN PRN Reason: PACU Use-HR<40 &/or Bradycardi Stop: 04/30/24 23:13 Ephedrine Sulfate (Ephedrine Sulfate 50 Mg/Ml Amp) 5 mg IV Q5M PRN PRN Reason: PACU Use Only-SBP<90 mmHg Stop: 04/30/24 23:13 Folic Acid (Folic Acid 1 Mg Tab) 1 mg PO QAM [facility] Stop: 05/28/24 08:59 Last Admin: 04/30/24 08:07 Dose: 1 mg Hydromorphone HCl (Hydromorphone Inj 1 Mg/Ml Syringe) 0.25 mg IV Q5M PRN PRN Reason: PACU Use Only-Pain Stop: 04/30/24 23:14 Ampicillin Sodium/Sulbactam Sodium 3,000 mg/ Sodium Chloride 100 mls @ 100 mls/hr IV Q6H [facility] Stop: 05/07/24 05:59 Last Infusion: 04/30/24 13:21 Dose: Infused Promethazine HCl 12.5 mg/ (Sodium Chloride) 50.5 mls @ 201 mls/hr IV Q6H PRN PRN Reason: Nausea And Vomiting Stop: 05/27/24 00:11 Last Infusion: 04/30/24 09:37 Dose: Infused Ibuprofen (Ibuprofen 200 Mg Tab) 200 mg PO Q6H PRN PRN Reason: pain not relieved by tylenol Stop: 05/27/24 00:11 Last Admin: 04/30/24 14:02 Dose: 200 mg Ketorolac Tromethamine (Ketorolac Tromethamine 15 Mg/Ml Vial) 15 mg IV Q6H PRN PRN Reason: Pain Stop: 05/02/24 00:11 Last Admin: 04/30/24 09:17 Dose: 15 mg Lorazepam (Lorazepam 0.5 Mg Tab) 0.5 mg PO TID PRN PRN Reason: Anxiety Stop: 05/27/24 06:20 Last Admin: 04/30/24 00:42 Dose: 0.5 mg Miscellaneous (Remove Nicoderm Patch) 1 each N/A DAILY@2058 [facility] Stop: 05/28/24 20:58 Last Admin: 04/29/24 20:05 Dose: 1 each Multivitamins ([facility]ivitamin Tab) [facility] [place] Stop: 05/28/24 08:59 Last Admin: 04/30/24 08:07 Dose: 1 tab Nicotine (Nicotine 21 Mg/24 Hr Tdsy) 1 patch TD HS BRE Stop: 05/27/24 20:59 Last Admin: 04/29/24 20:05 Dose: 1 patch Ondansetron HCl (Ondansetron Inj 2 Mg/Ml 2 Ml Vial) 4 mg IV ONCE PRN PRN Reason: PACU Use Only-Nausea/Vomiting Stop: 04/30/24 23:14 Thiamine HCl (Thiamine Hcl 100 Mg Tab) 100 mg PO QAM [facility] Stop: 05/28/24 08:59 Last Admin: 04/30/24 08:07 Dose: 100 mg
--- NOTE | 2024-04-30 18:10 | Anesthesiology Progress Note ---
Date of Service April 30, 2024 Anesthesia Post Procedure Vital Signs Vital Signs: Temp Pulse Pulse Pulse Resp BP BP 04/30/24 18:07 77 18 152/95 H 04/30/24 17:50 78 20 152/97 H 04/30/24 17:40 36.2 C L 82 15 151/103 H 04/30/24 17:30 78 21 148/98 H 04/30/24 17:20 72 20 141/92 H 04/30/24 17:10 74 17 144/98 H 04/30/24 17:00 36 C L 88 21 139/79 04/30/24 14:57 37.1 C 80 24 137/96 04/30/24 14:17 76 04/30/24 12:10 36.8 C 72 18 133/85 04/30/24 08:12 36.7 C 66 18 148/91 H 04/30/24 08:12 75 04/30/24 04:05 36.8 C 79 16 123/82 04/30/24 00:00 04/29/24 23:16 36.7 C 80 16 127/79 04/29/24 22:01 80 04/29/24 19:58 37 C 77 16 117/78 Pulse Ox Pulse Ox O2 Del Method O2 Del Method O2 Flow Rate 04/30/24 18:07 98 Room Air 04/30/24 17:50 96 Room Air 04/30/24 17:40 97 Room Air 04/30/24 17:30 99 Room Air 04/30/24 17:20 100 Oxymask 2 04/30/24 17:10 100 Oxymask 4 04/30/24 17:00 100 Oxymask 6 04/30/24 14:57 100 Room Air 04/30/24 14:17 04/30/24 12:10 99 Room Air 04/30/24 08:12 100 Room Air 04/30/24 08:12 04/30/24 04:05 99 Room Air 04/30/24 00:00 97 Room Air 04/29/24 23:16 98 Room Air 04/29/24 22:01 04/29/24 19:58 99 Room Air Pain Intensity Face: Pain Intensity: 6 Transfer of Care Handoff Completed per policy Notes Mental Status: alert / awake / arousable Patient Amnestic to Procedure: Yes Nausea / Vomiting: adequately controlled Pain: adequately controlled Airway Patency, RR, SpO2: stable & adequate BP & HR: stable & adequate Hydration State: stable & adequate Anesthetic Complications: no major complications apparent
[2024-04-30] MEDS: HYDROmorphone INJ 0.5 MG/0.5 ML SYR IV PRN (20:25)
[2024-05-01 07:00] LABS: Basophils # (auto) 0.02 K/uL (0.00-0.20); Basophils % (auto) 0.1 %; Eosinophils # (auto) 0.02 K/uL (0.00-0.50); Eosinophils % (auto) 0.1 %; Hematocrit (blood only) 42.6 % (37.0-47.0); Hemoglobin 14.8 g/dl (12.0-16.0); Immature Granulocytes # (auto) 0.07 K/uL (0.01-0.20); Immature Granulocytes % (auto) 0.5 %; Lymphocytes # (auto) 1.49 K/uL (1.20-3.40); Mean Corpuscular Hemoglobin 32.1 pg (25.0-34.0); Mean Corpuscular Hgb Conc 34.7 g/dL (32.0-36.0); Mean Corpuscular Volume 92.4 fL (80.0-100.0); Monocytes # (auto) 0.61 K/uL (0.11-0.59); Monocytes % (auto) 4.1 %; Neutrophils # (auto) 12.76 K/uL (1.40-6.50); Neutrophils % (auto) 85.2 %; Platelet Count 294 K/uL (130-400); RDW Coefficient of Variation 13.1 % (11.5-14.5); RDW Standard Deviation 44.7 fL (36.4-46.3); Red Blood Count 4.61 M/uL (4.20-5.40); White Blood Count 14.97 K/ul (4.8-10.8)
[2024-05-01 07:20] LABS: Calcium 9.4 mg/dl (8.6-10.3); Creatinine Clr Calc Pharmacy 126.1 ml/min; Est GFR (African American) 135.9 ml/min; Est GFR (Non-African American) 117.3 ml/min; Potassium 4.1 mmol/L (3.5-5.1)
--- NOTE | 2024-05-01 12:03 | Oral/Maxillofacial Progress Nt ---
Date of Service May 01, 2024 Assessment & Plan Admission and Anticipated Discharge Date Admission Date: April 26, 2024 Subjective Post Op infection evaluation at 24 hours s/p I&D with extractions doing very well, still some pain as expected. Swelling is almost gone and the tissue is turning back to normal in size and texture. No further drainage is noted. Infection has responded very well to the antibiotics, extractions and the I and D. I requested that the patient continue with massage, heat and wound care. At this time the area is well healed and responded well to treatment, no further treatment needed. I gave Geeta my contact information and requested she call my office upon D/C to set up a follow up exam. OK for D/C as per medical Results & Data Vital Signs (Past 12 Hours) Vital Signs Temp Pulse Pulse Resp BP BP Pulse Ox 05/01/24 11:39 36.7 C 79 18 121/83 99 05/01/24 08:18 82 05/01/24 07:52 36.6 C 87 18 136/84 97 05/01/24 03:06 36.1 C L 75 16 124/81 98 05/01/24 00:08 Pulse Ox O2 Del Method O2 Del Method 05/01/24 11:39 Room Air 05/01/24 08:18 05/01/24 07:52 Room Air 05/01/24 03:06 Room Air 05/01/24 00:08 97 Room Air PG Care Time/CCT Total # of Minutes Spent Total Time Spent with Patient: Total time spent is greater than 50% in coordination of care (as documented) at patient's floor/unit and/or counseling patient: Coding Level of Care Code None
--- NOTE | 2024-05-01 14:21 | Hospitalist Progress Note ---
Date of Service May 01, 2024 Assessment & Plan (1) Sepsis: Plan: Secondary to odontogenic infection CT evidence of extensive dental caries with periapical about tooth number 04/09/2018 and 31 infection concerning of periapical abscess Has been getting intravenous Unasyn She has been feeling reasonably better as of today there is 04/28/2024 Pain is been controlled with intravenous Toradol and occasional morphine Appreciate orofacial maxillary surgery input and recommendation Increasing pain in the right side of the face today Will adjust the pain medication Will have specific procedure like aspiration and may be tooth extraction tomorrow Will continue current management Status post extraction of 7, 12, 18, 19, 25, 29 and 31 and right lower fascial excision and grayness Remains seen neck collar and also requiring intravenous pain medications Drowsy from pain medications but does not have any acute distress Remains hemodynamically stable with blood pressure on the upper side Will continue current intravenous antibiotic Still has significant pain in the mouth Will start clears and then advance diet as tolerated Will try oral pain medications on top of intravenous If her conditions better by tomorrow may be she will be leaving the end of the tomorrow-Discussed with the orofacial maxillary surgeon Suicidality, history mood disorder Appreciate psychiatric input and recommendation No more suicidal ideation and the patient is taken off one-to-one isolation Denies any more psychotic and/or depressive behavior No more psychiatric issue Possible alcohol abuse KIM S at risk protocol, DT precautions No signs and or symptoms of withdrawal Hyperglycemia low DM ongoing tobacco abuse Nicotine patch Check hemoglobin A1c-5.2 DVT prophylaxis. SCDs for now possible procedure Recommend Lovenox 40 mg subcutaneous daily if no OMFS procedure Full code Admission and Anticipated Discharge Date Admission Date: April 26, 2024 Subjective 04/27/2024 The patient was seen and examined in medical telemetry unit She has been feeling little better Tremors are improved Right facial pain and dental pain is persisting No fever and or chills 04/28/2024 The patient was seen and examined in medical telemetry unit She has been complaining of more pain in the mouth today Denies any fever and or chills Will have dental surgery tomorrow 04/29/2024 The patient was seen and examined in medical telemetry unit She has been complaining of more pain in the right side of the face today Has been able to eat or drink anything Denies any fever and or chills Her pain medications will be increased 04/30/2024 The patient was seen and examined in PACU She is status post multiple teeth extraction and right lower facial incision and drainage Remains sedated on pain medications 05/01/2024 The patient was seen and examined in medical telemetry unit She still complains a lot of pain in the mouth and yet under the influence of medications Has not been able to eat or drink anything Denies any chest pain, palpitation or shortness of breath Review of Systems Review of Systems: All systems reviewed and are unremarkable except as noted below Physical Exam Physical Exam: Lying in bed without any acute distress Constitutional: well developed, well nourished, + ill appearing and average body habitus Eyes: PERRL, conjunctivae normal, anicteric sclerae ENMT: external ear and nose normal, oropharynx normal Neck: trachea midline, no thyromegaly Respiratory: no respiratory distress Auscultation: lungs clear to auscultation bilaterally Cardiovascular: Rate/Rhythm: regular rate, regular rhythm and + tachycardic Heart Sounds: normal S1 and normal S2; no murmur Extremities: no edema Gastrointestinal (Abdomen): Inspection/Auscultation: normal bowel sounds; abdomen not distended Percussion/Palpation: abdomen soft; abdomen nontender Neurologic: normal touch/pain/proprioception and moves all extremities; no focal motor deficits Lymphatic: no cervical or axillary lymphadenopathy Results & Data Results & Data Vital Signs (Past 12 Hours) Vital Signs Temp Pulse Pulse Resp BP BP Pulse Ox 05/01/24 11:39 36.7 C 79 18 121/83 99 05/01/24 08:18 82 05/01/24 07:52 36.6 C 87 18 136/84 97 05/01/24 03:06 36.1 C L 75 16 124/81 98 O2 Del Method 05/01/24 11:39 Room Air 05/01/24 08:18 05/01/24 07:52 Room Air 05/01/24 03:06 Room Air Laboratory Results Short CBC 05/01/24 Range/Units 06:31 WBC 14.97 H (4.8-10.8) K/ul Hgb 14.8 (12.0-16.0) g/dl Hct 42.6 (37.0-47.0) % Plt Count 294 (130-400) K/uL BMP 05/01/24 06:31 Sodium 136 Potassium 4.1 Chloride 103 Carbon Dioxide 26 BUN 12 Creatinine 0.60 Glucose 87 Calcium 9.4 Medications Administered Current Inpatient Medications Acetaminophen (Acetaminophen 325 Mg Tab) 650 mg PO QID PRN PRN Reason: pain/fever Stop: 05/27/24 00:11 Last Admin: 05/01/24 11:44 Dose: 650 mg Folic Acid (Folic Acid 1 Mg Tab) 1 mg PO QAM [facility] Stop: 05/28/24 08:59 Last Admin: 05/01/24 07:56 Dose: 1 mg Hydromorphone HCl (Hydromorphone Inj 0.5 Mg/0.5 Ml Syr) 0.5 mg IV Q4H PRN PRN Reason: Severe Pain (Scale 7, 8, 9,10) Stop: 05/14/24 20:13 Last Admin: 05/01/24 13:03 Dose: 0.5 mg Ampicillin Sodium/Sulbactam Sodium 3,000 mg/ Sodium Chloride 100 mls @ 100 mls/hr IV Q6H [facility] Stop: 05/07/24 05:59 Last Infusion: 05/01/24 12:52 Dose: Infused Promethazine HCl 12.5 mg/ (Sodium Chloride) 50.5 mls @ 201 mls/hr IV Q6H PRN PRN Reason: Nausea And Vomiting Stop: 05/27/24 00:11 Last Infusion: 05/01/24 14:10 Dose: Infused Ibuprofen (Ibuprofen 200 Mg Tab) 200 mg PO Q6H PRN PRN Reason: pain not relieved by tylenol Stop: 05/27/24 00:11 Last Admin: 05/01/24 12:18 Dose: 200 mg Ketorolac Tromethamine (Ketorolac Tromethamine 15 Mg/Ml Vial) 15 mg IV Q6H PRN PRN Reason: Pain Stop: 05/02/24 00:11 Last Admin: 05/01/24 10:49 Dose: 15 mg Lorazepam (Lorazepam 0.5 Mg Tab) 0.5 mg PO TID PRN PRN Reason: Anxiety Stop: 05/27/24 06:20 Last Admin: 04/30/24 00:42 Dose: 0.5 mg Miscellaneous (Remove Nicoderm Patch) 1 each N/A DAILY@2058 [facility] Stop: 05/28/24 20:58 Last Admin: 04/30/24 20:13 Dose: 1 each Multivitamins (Multivitamin Tab) 1 tab PO QAM [facility] Stop: 05/28/24 08:59 Last Admin: 05/01/24 07:56 Dose: 1 tab Nicotine (Nicotine 21 Mg/24 Hr Tdsy) 1 patch TD HS BRE Stop: 05/27/24 20:59 Last Admin: 04/30/24 20:13 Dose: 1 patch Thiamine HCl (Thiamine Hcl 100 Mg Tab) 100 mg PO QAM [facility] Stop: 05/28/24 08:59 Last Admin: 05/01/24 07:56 Dose: 100 mg
[2024-05-02 06:32] LABS: Basophils # (auto) 0.04 K/uL (0.00-0.20); Basophils % (auto) 0.4 %; Eosinophils # (auto) 0.17 K/uL (0.00-0.50); Eosinophils % (auto) 1.6 %; Hematocrit (blood only) 39.6 % (37.0-47.0); Hemoglobin 13.6 g/dl (12.0-16.0); Immature Granulocytes # (auto) 0.05 K/uL (0.01-0.20); Immature Granulocytes % (auto) 0.5 %; Lymphocytes # (auto) 3.34 K/uL (1.20-3.40); Mean Corpuscular Hemoglobin 32.2 pg (25.0-34.0); Mean Corpuscular Hgb Conc 34.3 g/dL (32.0-36.0); Mean Corpuscular Volume 93.6 fL (80.0-100.0); Mean Platelet Volume 9.1 fL (9.4-12.4); Monocytes # (auto) 0.92 K/uL (0.11-0.59); Monocytes % (auto) 8.6 %; Neutrophils # (auto) 6.24 K/uL (1.40-6.50); Neutrophils % (auto) 57.9 %; Platelet Count 276 K/uL (130-400); RDW Coefficient of Variation 13.5 % (11.5-14.5); RDW Standard Deviation 46.5 fL (36.4-46.3); Red Blood Count 4.23 M/uL (4.20-5.40); White Blood Count 10.76 K/ul (4.8-10.8)
[2024-05-02 06:45] LABS: Calcium 9.1 mg/dl (8.6-10.3); Creatinine Clr Calc Pharmacy 126.1 ml/min; Est GFR (African American) 135.9 ml/min; Est GFR (Non-African American) 117.3 ml/min; Potassium 3.8 mmol/L (3.5-5.1)
--- NOTE | 2024-05-02 13:02 | Hospitalist Progress Note ---
Date of Service May 02, 2024 Assessment & Plan (1) Sepsis: Plan: Secondary to odontogenic infection CT evidence of extensive dental caries with periapical about tooth number 04/09/2018 and 31 infection concerning of periapical abscess Has been getting intravenous Unasyn She has been feeling reasonably better as of today there is 04/28/2024 Pain is been controlled with intravenous Toradol and occasional morphine Appreciate orofacial maxillary surgery input and recommendation Increasing pain in the right side of the face today Will adjust the pain medication Will have specific procedure like aspiration and may be tooth extraction tomorrow Will continue current management Status post extraction of 7, 12, 18, 19, 25, 29 and 31 and right lower fascial excision and grayness Remains seen neck collar and also requiring intravenous pain medications Drowsy from pain medications but does not have any acute distress Remains hemodynamically stable with blood pressure on the upper side Will continue current intravenous antibiotic Still has significant pain in the mouth Will start clears and then advance diet as tolerated Will try oral pain medications on top of intravenous If her conditions better by tomorrow may be she will be leaving the end of the tomorrow-Discussed with the orofacial maxillary surgeon Pain is worse today and has not been able to eat take regular food Started with oral Percocet with the intravenous medicine for breakthrough pain Antibiotic changed to oral Augmentin Advised to ambulate in the room and in the hallway Likely discharge tomorrow Suicidality, history mood disorder Appreciate psychiatric input and recommendation No more suicidal ideation and the patient is taken off one-to-one isolation Denies any more psychotic and/or depressive behavior No more psychiatric issue Possible alcohol abuse KIM S at risk protocol, DT precautions No signs and or symptoms of withdrawal Hyperglycemia low DM ongoing tobacco abuse Nicotine patch Check hemoglobin A1c-5.2 DVT prophylaxis. SCDs for now possible procedure Recommend Lovenox 40 mg subcutaneous daily if no OMFS procedure Full code Admission and Anticipated Discharge Date Admission Date: April 26, 2024 Subjective 04/27/2024 The patient was seen and examined in medical telemetry unit She has been feeling little better Tremors are improved Right facial pain and dental pain is persisting No fever and or chills 04/28/2024 The patient was seen and examined in medical telemetry unit She has been complaining of more pain in the mouth today Denies any fever and or chills Will have dental surgery tomorrow 04/29/2024 The patient was seen and examined in medical telemetry unit She has been complaining of more pain in the right side of the face today Has been able to eat or drink anything Denies any fever and or chills Her pain medications will be increased 04/30/2024 The patient was seen and examined in PACU She is status post multiple teeth extraction and right lower facial incision and drainage Remains sedated on pain medications 05/01/2024 The patient was seen and examined in medical telemetry unit She still complains a lot of pain in the mouth and yet under the influence of medications Has not been able to eat or drink anything Denies any chest pain, palpitation or shortness of breath 05/02/2024 The patient was seen and examined in medical telemetry unit Her mouth remains sore and she has been feeling more pain on the left side of the face than the right Has not been able to take regular food due to increased pain Denies any fever and or chills Review of Systems Review of Systems: All systems reviewed and are unremarkable except as noted below Physical Exam Physical Exam: Lying in bed without any acute distress Constitutional: well developed, well nourished, + ill appearing and average body habitus Eyes: PERRL, conjunctivae normal, anicteric sclerae ENMT: external ear and nose normal, oropharynx normal Neck: trachea midline, no thyromegaly Respiratory: no respiratory distress Auscultation: lungs clear to auscultation bilaterally Cardiovascular: Rate/Rhythm: regular rate, regular rhythm and + tachycardic Heart Sounds: normal S1 and normal S2; no murmur Extremities: no edema Gastrointestinal (Abdomen): Inspection/Auscultation: normal bowel sounds; abdomen not distended Percussion/Palpation: abdomen soft; abdomen nontender Neurologic: normal touch/pain/proprioception and moves all extremities; no focal motor deficits Lymphatic: no cervical or axillary lymphadenopathy Results & Data Results & Data Vital Signs (Past 12 Hours) Vital Signs Temp Pulse Pulse Pulse Resp BP Pulse Ox 05/02/24 11:50 36.5 C 82 16 135/91 99 05/02/24 09:26 76 05/02/24 07:38 36.2 C L 86 16 137/86 98 05/02/24 03:56 36.6 C 65 16 151/92 H 100 O2 Del Method 05/02/24 11:50 Room Air 05/02/24 09:26 05/02/24 07:38 Room Air 05/02/24 03:56 Room Air Laboratory Results Short CBC 05/02/24 Range/Units 05:46 WBC 10.76 (4.8-10.8) K/ul Hgb 13.6 (12.0-16.0) g/dl Hct 39.6 (37.0-47.0) % Plt Count 276 (130-400) K/uL BMP 05/02/24 05:46 Sodium 137 Potassium 3.8 Chloride 104 Carbon Dioxide 28 BUN 9 Creatinine 0.60 Glucose 85 Calcium 9.1 Medications Administered Current Inpatient Medications Acetaminophen (Acetaminophen 325 Mg Tab) 650 mg PO QID PRN PRN Reason: pain/fever Stop: 05/27/24 00:11 Last Admin: 05/01/24 11:44 Dose: 650 mg Amoxicillin/Clavulanate Potassium (Amoxicillin/Clavulanate 875 Mg Tab) 1 tab PO BIDM [facility]; Protocol Stop: 05/09/24 16:59 Folic Acid (Folic Acid 1 Mg Tab) 1 mg PO QAM [facility] Stop: 05/28/24 08:59 Last Admin: 05/02/24 08:34 Dose: 1 mg Hydromorphone HCl (Hydromorphone Inj 0.5 Mg/0.5 Ml Syr) 0.5 mg IV Q4H PRN PRN Reason: Severe Pain (Scale 7, 8, 9,10) Stop: 05/14/24 20:13 Last Admin: 05/02/24 12:01 Dose: 0.5 mg Promethazine HCl 12.5 mg/ (Sodium Chloride) 50.5 mls @ 201 mls/hr IV Q6H PRN PRN Reason: Nausea And Vomiting Stop: 05/27/24 00:11 Last Infusion: 05/02/24 09:31 Dose: Infused Ibuprofen (Ibuprofen 200 Mg Tab) 200 mg PO Q6H PRN PRN Reason: pain not relieved by tylenol Stop: 05/27/24 00:11 Last Admin: 05/02/24 05:37 Dose: 200 mg Lorazepam (Lorazepam 0.5 Mg Tab) 0.5 mg PO TID PRN PRN Reason: Anxiety Stop: 05/27/24 06:20 Last Admin: 04/30/24 00:42 Dose: 0.5 mg Miscellaneous (Remove Nicoderm Patch) 1 each N/A DAILY@2058 [facility] Stop: 05/28/24 20:58 Last Admin: 05/01/24 21:39 Dose: 1 each Multivitamins (Multivitamin Tab) 1 tab PO QAM [facility] Stop: 05/28/24 08:59 Last Admin: 05/02/24 08:34 Dose: 1 tab Nicotine (Nicotine 21 Mg/24 Hr Tdsy) 1 patch TD HS [facility] Stop: 05/27/24 20:59 Last Admin: 05/01/24 21:39 Dose: 1 patch Oxycodone/Acetaminophen (Oxycodone/Acetaminophen 5mg/325mg Tab) 1 tab PO Q6H PRN PRN Reason: Pain Stop: 05/16/24 09:54 Thiamine HCl (Thiamine Hcl 100 Mg Tab) 100 mg PO QAM [facility] Stop: 05/28/24 08:59 Last Admin: 05/02/24 08:35 Dose: 100 mg
[2024-05-02] MEDS: oxyCODONE/ACETAMINOPHEN 5mg/325mg TAB PO PRN (14:07)
[2024-05-02] MEDS: AMOXICILLIN/CLAVULANATE 875 MG TAB PO SCH (16:33)
[2024-05-03 07:52] VITALS: RESP 18; O2SAT 98
--- NOTE | 2024-05-03 09:42 | Oral/Maxillofacial Progress Nt ---
Date of Service May 03, 2024 Assessment & Plan Admission and Anticipated Discharge Date Admission Date: April 26, 2024 Subjective Doing very well, swelling is almost gone. There is some residual edema on the right side which is common at day 3. Pain is relatively controlled. No signs of infection well healing extraction sites OK for D/C as per Oral surgery She has my office info for follow Results & Data Vital Signs (Past 12 Hours) Vital Signs Temp Pulse Pulse Pulse Resp BP Pulse Ox 05/03/24 07:51 36.6 C 77 18 137/97 98 05/03/24 07:08 77 05/03/24 03:42 36.5 C 82 20 139/93 97 05/02/24 23:07 36.6 C 76 16 137/89 99 05/02/24 21:42 96 H O2 Del Method 05/03/24 07:51 Room Air 05/03/24 07:08 05/03/24 03:42 Room Air 05/02/24 23:07 Room Air 05/02/24 21:42 PG Care Time/CCT Total # of Minutes Spent Total Time Spent with Patient: Total time spent is greater than 50% in coordination of care (as documented) at patient's floor/unit and/or counseling patient: Coding Level of Care Code None
[2024-05-03 11:50] VITALS: BP 166/97; TEMP 98.8
--- NOTE | 2024-05-03 12:42 | Hospitalist Progress Note ---
Date of Service May 03, 2024 Assessment & Plan (1) Sepsis: Plan: Secondary to odontogenic infection CT evidence of extensive dental caries with periapical about tooth number 04/09/2018 and 31 infection concerning of periapical abscess Has been getting intravenous Unasyn She has been feeling reasonably better as of today there is 04/28/2024 Pain is been controlled with intravenous Toradol and occasional morphine Appreciate orofacial maxillary surgery input and recommendation Increasing pain in the right side of the face today Will adjust the pain medication Will have specific procedure like aspiration and may be tooth extraction tomorrow Will continue current management Status post extraction of 7, 12, 18, 19, 25, 29 and 31 and right lower fascial excision and grayness Remains seen neck collar and also requiring intravenous pain medications Drowsy from pain medications but does not have any acute distress Remains hemodynamically stable with blood pressure on the upper side Will continue current intravenous antibiotic Still has significant pain in the mouth Will start clears and then advance diet as tolerated Will try oral pain medications on top of intravenous If her conditions better by tomorrow may be she will be leaving the end of the tomorrow-Discussed with the orofacial maxillary surgeon Pain is worse today and has not been able to eat take regular food Started with oral Percocet with the intravenous medicine for breakthrough pain Antibiotic changed to oral Augmentin Advised to ambulate in the room and in the hallway Overall pain is reasonably controlled with current pain medications She will be discharged home this afternoon on oral antibiotic to finish the complete course She was strongly warned about too much use of narcotic pain medications Suicidality, history mood disorder Appreciate psychiatric input and recommendation No more suicidal ideation and the patient is taken off one-to-one isolation Denies any more psychotic and/or depressive behavior No more psychiatric issue Possible alcohol abuse KIM S at risk protocol, DT precautions No signs and or symptoms of withdrawal Hyperglycemia low DM ongoing tobacco abuse Nicotine patch Check hemoglobin A1c-5.2 DVT prophylaxis. SCDs for now possible procedure Recommend Lovenox 40 mg subcutaneous daily if no OMFS procedure Full code Discharge home this afternoon (2) Infected dental caries: Admission and Anticipated Discharge Date Admission Date: April 26, 2024 Subjective 04/27/2024 The patient was seen and examined in medical telemetry unit She has been feeling little better Tremors are improved Right facial pain and dental pain is persisting No fever and or chills 04/28/2024 The patient was seen and examined in medical telemetry unit She has been complaining of more pain in the mouth today Denies any fever and or chills Will have dental surgery tomorrow 04/29/2024 The patient was seen and examined in medical telemetry unit She has been complaining of more pain in the right side of the face today Has been able to eat or drink anything Denies any fever and or chills Her pain medications will be increased 04/30/2024 The patient was seen and examined in PACU She is status post multiple teeth extraction and right lower facial incision and drainage Remains sedated on pain medications 05/01/2024 The patient was seen and examined in medical telemetry unit She still complains a lot of pain in the mouth and yet under the influence of medications Has not been able to eat or drink anything Denies any chest pain, palpitation or shortness of breath 05/02/2024 The patient was seen and examined in medical telemetry unit Her mouth remains sore and she has been feeling more pain on the left side of the face than the right Has not been able to take regular food due to increased pain Denies any fever and or chills 05/03/2024 The patient was seen and examined in medical telemetry unit She has been stable and still has some pain which is reasonably controlled with current medications No fever and no chills and she has been tolerating diet She will be discharged home this afternoon Review of Systems Review of Systems: All systems reviewed and are unremarkable except as noted below Physical Exam Physical Exam: Lying in bed without any acute distress Constitutional: well developed, well nourished, + ill appearing and average body habitus Eyes: PERRL, conjunctivae normal, anicteric sclerae ENMT: external ear and nose normal, oropharynx normal Neck: trachea midline, no thyromegaly Respiratory: no respiratory distress Auscultation: lungs clear to auscultation bilaterally Cardiovascular: Rate/Rhythm: regular rate, regular rhythm and + tachycardic Heart Sounds: normal S1 and normal S2; no murmur Extremities: no edema Gastrointestinal (Abdomen): Inspection/Auscultation: normal bowel sounds; abdomen not distended Percussion/Palpation: abdomen soft; abdomen nontender Neurologic: normal touch/pain/proprioception and moves all extremities; no focal motor deficits Lymphatic: no cervical or axillary lymphadenopathy Results & Data Results & Data Vital Signs (Past 12 Hours) Vital Signs Temp Pulse Pulse Pulse Resp BP Pulse Ox 05/03/24 11:49 37.1 C 80 18 166/97 H 98 05/03/24 07:51 36.6 C 77 18 137/97 98 05/03/24 07:08 77 05/03/24 03:42 36.5 C 82 20 139/93 97 O2 Del Method 05/03/24 11:49 Room Air 05/03/24 07:51 Room Air 05/03/24 07:08 05/03/24 03:42 Room Air Medications Administered Current Inpatient Medications Acetaminophen (Acetaminophen 325 Mg Tab) 650 mg PO QID PRN PRN Reason: pain/fever Stop: 05/27/24 00:11 Last Admin: 05/01/24 11:44 Dose: 650 mg Amoxicillin/Clavulanate Potassium (Amoxicillin/Clavulanate 875 Mg Tab) 1 tab PO BIDM [facility]; Protocol Stop: 05/09/24 16:59 Last Admin: 05/03/24 07:34 Dose: 1 tab Folic Acid (Folic Acid 1 Mg Tab) 1 mg PO QAM [facility] Stop: 05/28/24 08:59 Last Admin: 05/03/24 07:34 Dose: 1 mg Hydromorphone HCl (Hydromorphone Inj 0.5 Mg/0.5 Ml Syr) 0.5 mg IV Q4H PRN PRN Reason: Severe Pain (Scale 7, 8, 9,10) Stop: 05/14/24 20:13 Last Admin: 05/03/24 12:13 Dose: 0.5 mg Promethazine HCl 12.5 mg/ (Sodium Chloride) 50.5 mls @ 201 mls/hr IV Q6H PRN PRN Reason: Nausea And Vomiting Stop: 05/27/24 00:11 Last Infusion: 05/02/24 09:31 Dose: Infused Ibuprofen (Ibuprofen 200 Mg Tab) 200 mg PO Q6H PRN PRN Reason: pain not relieved by tylenol Stop: 05/27/24 00:11 Last Admin: 05/03/24 11:00 Dose: 200 mg Lorazepam (Lorazepam 0.5 Mg Tab) 0.5 mg PO TID PRN PRN Reason: Anxiety Stop: 05/27/24 06:20 Last Admin: 04/30/24 00:42 Dose: 0.5 mg Miscellaneous (Remove Nicoderm Patch) 1 each N/A DAILY@2058 [facility] Stop: 05/28/24 20:58 Last Admin: 05/02/24 20:26 Dose: 1 each Multivitamins (Multivitamin Tab) 1 tab PO QAM [facility] Stop: 05/28/24 08:59 Last Admin: 05/03/24 07:34 Dose: 1 tab Nicotine (Nicotine 21 Mg/24 Hr Tdsy) 1 patch TD HS [facility] Stop: 05/27/24 20:59 Last Admin: 05/02/24 20:26 Dose: 1 patch Oxycodone/Acetaminophen (Oxycodone/Acetaminophen 5mg/325mg Tab) 1 tab PO Q6H PRN PRN Reason: Pain Stop: 05/16/24 09:54 Last Admin: 05/03/24 11:00 Dose: 1 tab Thiamine HCl (Thiamine Hcl 100 Mg Tab) 100 mg PO QAM [facility] Stop: 05/28/24 08:59 Last Admin: 05/03/24 07:34 Dose: 100 mg
[2024-05-03 15:47] VITALS: PULSE 82
[2024-05-03] MEDS: oxyCODONE/ACETAMINOPHEN 5mg/325mg TAB PO STA (15:51)
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
--- NOTE | 2024-05-09 21:00 | Operative Report ---
PG Post Operative Report Pre & Post Diagnosis Operation Date: 04/30/24 14:20 Pre-Op Diagnosis: Infected dental caries Post-Op Diagnosis: Infected dental caries I identified the patient and participated in the time-out.: Yes Procedure Operation Date: 04/30/24 14:20 Actual Procedures p Teeth Extraction of 7, 12, 18, 19, 25, 29, 31(Not Applicable) - Vahid Bagley DMD s Right Lower Facial Incision and Drainage(Not Applicable) - Vahid Bagley DMD Surgeon Vahid Bagley DMD [place] none Estimated Blood Loss 5 Findings Consistent with Post-Op Diagnosis Specimens I&D Drains none Anesthesia Type General Complications none Disposition Accompanied Patient To Recovery: Yes Indications acute facial infection, fractured and grossly decayed teeth causing sepsis Description of Procedure Actual Procedures p Teeth Extraction of 7, 12, 18, 19, 25, 29, 31(Not Applicable) - Vahid Bagley DMD s Right Lower Facial Incision and Drainage ICD 10 K10.20 and K04.7 CPT 27866 x 2 lower right and left infections D7210 x 4 for teeth 18, 19, 29, 31 D7140 x 3 for teeth 7,12,25 Actual Procedures p Incision and Drainage 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 This has resulted in the chronic infections, decayed and abscessed teeth She will need comprehensive dental care Once cleared for surgery general anesthesia was achieved, the eyes were protected by the anesthesia dept criteria. A time out was take for patient ID, antibiotics, equipment and position verification once all agreed the procedure began. Local anesthesia using Marcaine with a vasoconstrictor ( 1.8 ml per site) given into right inferior alveolar nerve and upper. A throat pack was placed after the oral cavity was irrigated with saline. Once a surgical level of anesthesia was obtained and the local anesthesia was given time for the blocks the surgery was started. I turned my attention to the infection which was located in the lower right. Incision and Drainage of subperiosteal area lower right and left side CPT 17648 x 2 Using a 15 blade an incision was made around the gingival tissue from the retromolar area to tooth 24 and on the left side from the retromolar to area 21. Once the incision was made a lot of pus extruded from the site. Because of the chronic nature of the infection there was a lot of scaring that contributed to the firm expansion of the lateral vestibular space. This tissue was removed to debulk the area. A curved hemostat was carefully placed into the infected space along the lateral side of the lower jaw to insure adequate drainage of the submandibular space and masseter spaces. Some further drainage was now allowed to escape. I palpated the jaw and no further drainage was expressed. The area was irrigated with at least 100 ml of NS solution. I now turned my attention to remove the lower 25,29,31 and 18,19 Lower # 29,31,18,19 D7210 x 4 Since the full thick Muco-periosteal flap was made and was reflected the bone adjacent to # 30 was visualized. The rongeur was used to remove bone, the tooth was removed with a 301 elevator and lower dental forceps., the mental nerve was intact, there was a large amount of granulation tissue on the apex and some more pus that was expressed.At this time there was no bleeding. The bone was trimmed, smoothed and the large flap was closed with a 2-0 chromic sutures. Upper #7 and 12 and lower simple extraction # 25 D7140 x 3 These were simple extraction and removed with a dental forceps. The sockets were curetted and irrigated. The dental forceps was used to remove the following simple extraction. At this time there was no bleeding. The bone was trimmed, smoothed no sutures were needed. Completion of the case Once the I&D and extractions were completed, I inspected the sites to insure all bleeding was controlled. I removed the throat pack and suctioned the throat. Bilateral gauze pressure dressings were placed. All instrument and sponge count was correct. The patient was allowed to awake from the anesthesia. Once full awake the anesthesia tube was removed and the patient was taken to the recovery room with all vital sign stable. The patient tolerated the surgery very well. I will follow the patient in my office Instruction and Rx will be given upon discharge. I attest to the content of the Intraoperative Record and any orders documented therein. Any exceptions are noted below.
== END 2024-05-03 16:41 | disposition home or self-care (01) | DRG 872 ==
LOC: ED 20:07 → EDINP 23:43 → 2N 04-27 00:40